=== PATIENT | female | born 1975 | race African-American/Black ===

== ENCOUNTER 2016-12-01 18:15 | Emergency (ER) | payer OTHER ==
[~2016-12-01] VITALS: Ht 154.9 cm; Wt 59.9 kg
--- NOTE | ~2016-12-01 | CT16 ---
[facility] A Service [facility] RADIOLOGY TEXT RESULTS PATIENT: NIKKIE STEIN LOCATION: SED : 75 UNIT #: [id number] AGE: [address]: Onesimo Davila MD SEX: F ORDER DR: [id number] [address] [address] [id number] E MR#: [id number] Acc #: [id number] NAME: NIKKIE STEIN : 1975 SEX: F STUDY DATE/TIME: 12/01/2016 20:02 UNIT: SED ROOM: STUDY DESCRIPTION: CT Angio Chest for PE Attending Physician: Onesimo Davila M.D. Ordering Physician: Consuelo Solano M.D. Primary Care Physician: No Primary Care Physician MEDICAL IMAGING REPORT This report is preliminary unless electronic signature is present. EXAM CT angiogram of the chest for pulmonary embolism 12/01/2016 at 20:02 hours HISTORY A 41-year-old woman with chest and back pain, anxiety with sudden onset of chest pain at noon today with crying episode. COMPARISON None. TECHNIQUE Dynamic helical CT angiographic images were obtained from the thoracic inlet through the adrenal glands. 3-D sagittal and coronal reconstructions were performed. Contrast was Isovue-370 100 mL IV. Total exam DLP 496 mGy/cm. This CT exam was performed with one or more of the following radiation dose reduction techniques: automatic exposure control, adjustment of mA and/or kV according to patient size, and iterative reconstruction. FINDINGS Images through the thoracic inlet demonstrate no thyroid lesion or adenopathy. Images through the chest demonstrates diagnostic quality opacification of the pulmonary arteries which are normal in caliber. There are no filling defects seen to suggest the presence of pulmonary emboli. The aorta is normal. Cardiac chambers, pericardium are normal. There is no pleural effusion or pneumothorax. There are benign calcified mediastinal nodes. The lung window images demonstrate minimal linear scar in the left upper lobe anteriorly. There is mild basilar linear density likely atelectasis. [facility] A Service [facility] RADIOLOGY TEXT RESULTS PATIENT: NIKKIE STEIN LOCATION: SED : 75 UNIT #: [id number] AGE: [address]: Onesimo Davila MD SEX: F ORDER DR: Images through the upper abdomen are negative. IMPRESSION 1. No evidence of pulmonary embolism. Normal aorta. 2. The lungs are clear. There are no effusions. Dictated by... Aura Hall M.D. THIS IS AN ELECTRONICALLY VERIFIED REPORT Aura Hall M.D. at 12/02/2016 9:28 AM Arely TD: 12/02/2016 00:01 JOB #: [id number] MEDICAL IMAGING REPORT Page 1 of 1
--- NOTE | ~2016-12-01 | EKG ---
PATIENT: NIKKIE STEIN UNIT #: [id number] Ventricular Rate: 74 BPM Atrial Rate: 74 BPM P-R Interval: 156 ms QRS Duration: 80 ms Q-T Interval: 384 ms QTC Calculation(Bezet): 426 ms P [place]: 67 degrees Calculated R [place]: 61 degrees Calculated T [place]: 49 degrees Diagnosis Line: Normal sinus rhythm with sinus arrhythmia Diagnosis Line: Normal ECG Diagnosis Line: No previous ECGs available Diagnosis Line: Confirmed by CRIS MACIAS MD ([id number]) on Diagnosis Line: 12/05/2016 8:07:55 AM INTERPRETING MD: COLLEEN ALVARES
[~2016-12-01 18:15] MED LIST: BENTYL10 M1 PO; BENTYL20 M1 PO; BENTYL20 MG PO; BLOOD PRESSURE PO; CITRATE OF MAG296 M1 PO; COLACE PO; EXCEDRIN MIGRA1 EACH PO; FLAGYL PO; FLEET ENEMA133 M1 PR; IRON18 MG; LABETALOL HCL100 MG PO; MACROBID100 MG; MEDROL4 MG/DOSE- PO; MELOXICAM7.5 MG/5 M PO; MIRALAX119 GM PO; MORGIDOX100 MG PO; NEXIUM PO; NO MEDICATIONS; PEPCID PO; PHENERGAN25 M1 PO; PRENATAL1 TA1; PRILOSEC20 M1 PO; Q-PAP325 MG PO; VOLTAREN75 MG PO; ZANTAC150 MG PO; ZOFRANODT PO; ZOVIRAX
[2016-12-01 18:50] LABS: BASOPHIL% 0.7 % (0-2.5); EOSINOPHIL% 0.6 % (0.0-7.0); HEMATOCRIT 38.1 % (35.0-45.0); LYMPHOCYTE# 2.5 X10e3 (1.0-3.5); LYMPHOCYTE% 46.5 % (17.0-45.0); MEAN CELL VOLUME 91.5 FL (83-96); MEAN CORPUSCULAR HEMOGLOBIN 31.1 PG (28-34); MEAN PLATELET VOLUME 8.8 FL (6.5-11.5); MONOCYTE# 0.4 X10e3 (0-1.0); MONOCYTE% 7.6 % (3.0-12.0); NEUTROPHIL# 2.4 X10e3 (1.5-7.1); NEUTROPHIL% 44.6 % (40-75); PLATELET COUNT 264 X10e3 (140-420); RED BLOOD COUNT 4.17 X10e (3.90-5.30); RED CELL DISTRIBUTION WIDTH 15.9 % (11.0-15.5); WHITE BLOOD COUNT 5.4 X10e3 (4.0-10.5)
[2016-12-01 18:51] LABS: DIFF IND NO
[2016-12-01 19:01] LABS: INR 1.3; PROTHROMBIN TIME (PATIENT) 14.5 SECONDS (9.5-12.4)
[2016-12-01 19:06] LABS: POC - CKMB 1.1 ng/mL (0.0-7.9); POC - TROPONIN <0.05 ng/mL (<=0.05)
[2016-12-01 19:08] LABS: PARTIAL THROMBOPLASTIN TIME 32.8 SECONDS (25.6-38.1)
[2016-12-01 19:11] LABS: ALBUMIN SERUM 4.3 g/dL (3.5-5.0); ALCOHOL BLOOD <5 mg/dL (0); ALKALINE PHOSPHATASE 66 U/L (32-92); ALT (SGPT) 14 U/L (10-40); AMYLASE 36 U/L (0-46); AST (SGOT) 18 U/L (10-42); BILIRUBIN, DIRECT 0.1 mg/dL (0.0-0.2); BILIRUBIN,INDIRECT 0.6 mg/dL (0.0-0.9); BILIRUBIN,TOTAL 0.7 mg/dL (0.2-2.0); BLOOD UREA NITROGEN 10 mg/dL (9-23); CALCIUM SERUM 9.2 mg/dL (8.4-10.2); CARBON DIOXIDE 23 mmol/L (22-31); CHLORIDE 105 mmol/L (100-111); CREATININE SERUM 0.8 mg/dL (0.6-1.4); GLOM FILT RATE Estimated 106.2 mL/min (>60); GLUCOSE FASTING 88 mg/dL (70-110); LIPASE 30 U/L (22-51); POTASSIUM 3.8 mmol/L (3.5-5.1); PROTEIN TOTAL SERUM 7.4 g/dL (6.0-8.3); SODIUM 136 mmol/L (135-145)
[2016-12-01 20:31] LABS: URINE SOURCE CLEAN CATCH
[2016-12-01 20:34] LABS: URINE APPEARANCE CLEAR; URINE BILIRUBIN NEG (NEG); URINE BLOOD TRACE-INTACT (NEG); URINE COLOR YELLOW; URINE GLUCOSE NEG (NORM); URINE KETONE TRACE (NEG); URINE LEUKOCYTE ESTERASE NEG (NEG); URINE NITRATE NEG (NEG); URINE PROTEIN NEG (NEG); URINE UROBILINOGEN 0.2 MG/DL (NORM)
[2016-12-01 20:39] LABS: POC - CKMB <1.0 ng/mL (0.0-7.9)
[2016-12-01 20:40] LABS: POC - TROPONIN <0.05 ng/mL (<=0.05)
[2016-12-01 20:44] LABS: AMPHETAMINE NEG (NEG); BARBITURATES NEG (NEG); BENZODIAZEPINES NEG (NEG); COCAINE NEG (NEG); MARIJUANA POS (NEG); OPIATES POS (NEG); TRICYCLIC ANTIDEPRESSANTS NEG (NEG); U METHADONE NEG (NEG)
[2016-12-01 20:45] LABS: MICRO INDICATED? YES
[2016-12-01 20:46] LABS: CULTURE INDICATED? NO; URINE BACTERIA NEG (NEG); URINE MUCUS PRESENT; URINE SQUAMOUS EPITHELIAL CELL OCCAS /[HPF]
== END 2016-12-01 21:41 | disposition home or self-care (01) ==
LOC: SED 18:15
PROVIDERS: Emergency Medicine; Student in an Organized Health Care Education/Training Program
DX: R07.9 Chest pain, unspecified (principal); R09.1 Pleurisy; F41.9 Anxiety disorder, unspecified; F17.200 Nicotine dependence, unspecified, uncomplicated; Z88.0 Allergy status to penicillin; Z88.5 Allergy status to narcotic agent
CPT/HCPCS: 36415; 71275; 80048; 80076; 80307; 81003; 82150; 82553; 83690; 83880; 84484; 85025; 85610; 85730; 93005; 96361; 96374; 99285; G0480; J2270; Q9967